=== PATIENT | male | born 1990 | race Caucasian/White ===

== ENCOUNTER 2017-04-18 14:34 | Emergency (ER) | payer SELFPAY ==
[~2017-04-18] VITALS: Ht 177.8 cm; Wt 78.0 kg
[2017-04-18 14:42] VITALS: BP 139/77
== END 2017-04-18 18:17 | disposition home or self-care (01) ==
LOC: ER 15:24
DX: S09.93XA Unspecified injury of face, initial encounter (principal); L90.5 Scar conditions and fibrosis of skin; F12.10 Cannabis abuse, uncomplicated; X58.XXXA Exposure to other specified factors, initial encounter; Y93.89 Activity, other specified; Y92.89 Other specified places as the place of occurrence of the external cause; Y99.8 Other external cause status
CPT/HCPCS: 99281

== ENCOUNTER 2023-10-18 11:42 | Emergency (ER) | payer MEDICAID ==
[~2023-10-18] VITALS: Ht 177.8 cm; Wt 91.6 kg
[2023-10-18 12:01] VITALS: TEMP 98.4; O2SAT 100
[2023-10-18] MEDS ORDERED: BO1 TP (12:56)
[2023-10-18] MEDS: LIDOCAINE HCL 1% 20ML VIAL INFIL ONE (13:02)
[2023-10-18] MEDS: TETANUS, DIPHTHERIA, PERTUSSIS VAC/PF 0.5ML (>10YR OLD) IM ONE (13:08)
[2023-10-18 13:13] VITALS: BP 129/78; PULSE 82; RESP 18
== END 2023-10-18 13:14 | disposition home or self-care (01) ==
LOC: ER 11:46
DX: S61.512A Laceration without foreign body of left wrist, initial encounter (principal); F12.10 Cannabis abuse, uncomplicated; W26.9XXA Contact with unspecified sharp object(s), initial encounter; Y93.89 Activity, other specified; Y92.89 Other specified places as the place of occurrence of the external cause; Y99.8 Other external cause status
CPT/HCPCS: 90715; 12001; 90471; 99283; J3490; Z7610 ×2